=== PATIENT | female | born 1945 | race Caucasian/White ===

== ENCOUNTER → 2016-08-05 | Outpatient (CLI) | payer OTHER ==
--- NOTE | 2016-08-05 16:47 | DI ---
AP PELVIS and RIGHT HIP, 08/05/2016 3:00 PM: Clinical History: Right hip pain. Previous Exam: None at this facility. There is no soft tissue abnormality. The bony structures of the pelvis are normal. 2 views of the rig ht hip narrowing of the superior aspect of the joint space. There is no acetabular over coverage and the femoral head is spherical. The technologist inadvertently obtained 2 views of the left hip and th ose also show mild narrowing of the superior joint space. Readin. There is narrowing of the superior aspect of the right hip indicating mild arthritic change. The technologist inadvertently radiographed the left hip as well and this shows similar mild arthritic ch anastasia. The patient was not charged for the additional views of the left hip. 2. The AP pelvis view is unremarkable.
== END ==
LOC: RAD 14:57
PROVIDERS: ATTEND Obstetrics & Gynecology Gynecology
DX: S79.911A Unspecified injury of right hip, initial encounter (principal); M16.11 Unilateral primary osteoarthritis, right hip
CPT/HCPCS: 73502

== ENCOUNTER → 2016-08-29 | Outpatient (CLI) | payer OTHER ==
--- NOTE | 2016-08-29 17:01 | DI ---
MRI LOW EXTREMITY JNT W/O CN,08/29/2016 1:50 PM: Clinical History: Right hip pain status post fall down the stairs 6 weeks ago. Previous Exam: None at this facility. Findings: Multiplanar MR images are obtained through the pelvis without contrast, and demonstrate anatomic alig nment without visible fracture. Marrow signal is preserved. There are no full-thickness osteochondral defects. There does appear to be some irregular signal involving the acetabular shamir bilaterally, which may r epresent some chronic degenerative tearing. The major vascular flow voids are unremarkable. Visualized portions of the urinary bladder is unremarkable. Limited evaluation of the sciatic nerve is also normal. The sacrum and superior and inferior pubic rami are intact. There is a large amount of subcutaneous fat identified. There is a small 5 mm cystic area within the iliopsoas muscle near the myotendinous junction. The visualized portions of the distal thecal sac are unremarkable. Impression: 1. 5 mm cystic structure near the anterior inferior glenoid labrum appears to represent an interstiti al tear of the iliopsoas tendon on the right. 2. No fractures.
== END ==
LOC: MRI 13:42
PROVIDERS: ATTEND Physician Assistant Surgical
DX: R10.2 Pelvic and perineal pain (principal); M25.551 Pain in right hip; S73.191A Other sprain of right hip, initial encounter
CPT/HCPCS: 73721